=== PATIENT | male | born 1965 | race Caucasian/White ===

== ENCOUNTER → 2021-12-18 | Outpatient (CLI) | payer OTHER, SELFPAY | END | disposition home or self-care (01) | LOC: PSN 13:43 | PROVIDERS: PCP Family Medicine; Referring Provider Internal Medicine Pulmonary Disease; Visit Provider Internal Medicine Pulmonary Disease | DX: U07.1 COVID-19 (principal); R09.02 Hypoxemia; J30.9 Allergic rhinitis, unspecified | CPT/HCPCS: 87635; C9803; U0003; U0005 ==

== ENCOUNTER → 2023-04-16 | Outpatient (CLI) | payer OTHER, SELFPAY ==
--- NOTE | 2023-04-16 17:45 | STRESSREP ---
Stress Test Report Pharmacologic myocardial perfusion stress test. 57-year-old M with a history of chest pain Resting EKG demonstrates sinus rhythm with a rate of 77bpm. Resting blood pressure is 142/78 mmHg. 0.4 mg of regadenoson was infused per usual protocol followed by rapid intravenous saline flush injection. Continuous EKG monitoring was performed. The maximum heart rate was 100 bpm which was 61% of max impacted heart rate the maximum workload was 1 metabolic equivalent. At rest there were no ST or T wave changes noted to suggest ischemia and at peak infusion nonspecific ST changes were noted which did not meet the criteria for ischemia. No clinical angina is noted. The final blood pressure was 114/68 mmHg. Patient exercised for 7 minutes and 11 seconds attaining 10.1 METS but did not attain the maximum heart rate. Myocardial perfusion protocol. 14.4 mCi of technetium 99m sestamibi was injected at rest. 0.4 mg of regadenoson was infused per usual protocol. At peak infusion 44.5 mCi of technetium 99m sestamibi was injected stress images were obtained stress and rest images were reconstructed and compared in the short axis vertical long and horizontal long axis. Gated images were also obtained. Perfusion SPECT analysis: Review of the stress images demonstrate normal uptake of tracer noted in all areas of the myocardium. The resting images similar demonstrated normal uptake of tracer noted in all areas of the myocardium. No areas of reversibility are noted to suggest ischemia and no previous infarct is noted. Gated SPECT analysis: The gated ejection fraction is 66%. Conclusion: Normal pharmacologic myocardial perfusion stress test. [Preserved] ejection fraction.
== END | disposition home or self-care (01) ==
PROVIDERS: PCP Family Medicine; Referring Provider Internal Medicine Pulmonary Disease; Visit Provider Internal Medicine Pulmonary Disease
DX: J98.6 Disorders of diaphragm (principal); R00.2 Palpitations; R06.02 Shortness of breath
CPT/HCPCS: 78452; 93017; A9500; A4216; J2785

== ENCOUNTER 2024-03-11 14:45 | Outpatient (CLI) | payer OTHER, SELFPAY ==
--- NOTE | 2024-03-11 14:56 | ECHOD_ITS ---
Reason For Study: OBSTRUCTIVE SLEEP APNEA Procedure This was a 2D Doppler, Color Flow transthoracic echocardiogram. Exam performed in department. Left Ventricle Normal LV size. Left ventricular systolic function is normal. The left ventricular ejection fraction is 65 %. Stage 1 diastolic dysfunction. No regional wall motion abnormalities noted. Right Ventricle Normal RV size. Normal systolic function. Atria The left and right atria are normal. Normal right atrium. Mitral Valve Mild focal mitral valve calcification, bileaflet. Tricuspid Valve Normal tricuspid valve. Unable to estimate RV systolic pressure due to insufficient tricuspid regurgitant envelope. Aortic Valve Peak aortic valve gradient 12 mmHg. Mean aortic valve gradient 6 mmHg. Pulmonic Valve Normal pulmonic valve. Great Vessels Normal aortic root. The pulmonary artery is normal size. Inferior vena cava collapse with respiration. Pericardium/Pleural No pericardial effusion. MMode/2D Measurements & Calculations LVIDd: 4.8 cm IVSd: 1.1 cm LVOT diam: 2.2 cm LVIDs: 2.9 cm LVPWd: 1.1 cm LVOT area: 3.7 cm2 RVDd: 4.1 cm FS: 40.8 % Ao root diam: 3.3 cm LAV(MOD-bp): 51.2 ml LVAd ap4: 23.9 cm2 LAV(MOD-bp) Indexed: 23.8 ml/m2 LVLd ap4: 7.3 cm LAV(MOD-sp2): 60.2 ml EDV(MOD-sp4): 66.8 ml LAV(MOD-sp4): 41.1 ml EDV(sp4-el): 66.5 ml LVAs ap4: 12.9 cm2 LVLs ap4: 6.1 cm ESV(MOD-sp4): 24.4 ml ESV(sp4-el): 23.3 ml EF(MOD-sp4): 63.4 % EF(sp4-el): 65.0 % LVAd ap2: 21.8 cm2 SV(MOD-sp4): 42.4 ml SV(MOD-sp2): 36.2 ml LVLd ap2: 7.1 cm EDV(MOD-sp2): 55.2 ml EDV(sp2-el): 56.4 ml LVAs ap2: 11.7 cm2 LVLs ap2: 6.1 cm ESV(MOD-sp2): 19.0 ml ESV(sp2-el): 19.1 ml EF(MOD-sp2): 65.6 % SV(sp4-el): 43.2 ml LA dimension(2D): 4.3 cm LA A4 area: 17.0 cm2 RA A4 area: 13.2 cm2 TAPSE: 2.0 cm Time Measurements MV dec time: 0.26 sec Doppler Measurements & Calculations MV E max scott: 74.5 cm/sec Lat Peak E' Scott: 11.6 cm/sec Med Peak E' Scott: 10.3 cm/sec MV A max scott: 79.2 cm/sec E/E' lat: 6.5 E/E' med: 7.3 MV E/A: 0.94 Ao V2 max: 171.7 cm/sec LV V1 max: 132.5 cm/sec MV dec slope: 281.8 cm/sec2 Ao max P.8 mmHg LV V1 max P.0 mmHg Ao V2 mean: 112.6 cm/sec LV V1 mean P.6 mmHg Ao mean P.9 mmHg LV V1 mean: 90.7 cm/sec Ao V2 VTI: 36.3 cm LV V1 VTI: 25.4 cm AV (velocity ratio): 0.70 VICTOR M(I,D): 2.6 cm2 VICTOR M(V,D): 2.9 cm2 SV(LVOT): 94.0 ml PA V2 max: 100.5 cm/sec PA max PG (full): 1.9 mmHg ECHO/Echo Complete Interpretation Summary Normal LV size. Left ventricular systolic function is normal. The left ventricular ejection fraction is 65 %. Stage 1 diastolic dysfunction. Ordering Physician: Medhat Sumner V Referring Physician: Teodoro Kenny M.D. Performed By: Nancy Martin RDCS
== END 2024-03-11 23:59 | disposition home or self-care (01) ==
PROVIDERS: PCP Family Medicine; Referring Provider Internal Medicine Pulmonary Disease; Visit Provider Internal Medicine Pulmonary Disease
DX: G47.33 Obstructive sleep apnea (adult) (pediatric) (principal); I51.9 Heart disease, unspecified
CPT/HCPCS: 93306